=== PATIENT | male | born 1970 | race Caucasian/White ===

== ENCOUNTER 2018-11-29 09:57 | Emergency (ER) | payer MEDICAID ==
[~2018-11-29] VITALS: Ht 190.5 cm; Wt 74.8 kg
== END 2018-11-29 11:45 | disposition home or self-care (01) ==
LOC: ED 09:57
DX: E16.2 Hypoglycemia, unspecified (principal); R56.9 Unspecified convulsions; F17.200 Nicotine dependence, unspecified, uncomplicated
CPT/HCPCS: 99284; 99406